=== PATIENT | female | born 1945 | race Caucasian/White ===

== ENCOUNTER → 2017-09-20 | Outpatient (CLI) | payer MEDICARE, OTHER ==
[~2017-09-20] MED LIST: AMBIEN 10MG10 MG PO; CALCIUM 500500 M2 PO; CELEXA 20MG20 MG/TAB PO; HYZAAR 12.5 MG-1 TAB PO; MULTIPLE VITAMI1 CAP PO; PROTONIX 40MG T40 MG PO; SYNTHROID 0.0.025 MG PO; VITAMIN D1000 IU PO; ZOCOR 40MG40 MG PO
[2017-09-20 16:44] LABS: HIV 1/2 Antibodies Non-Reactive; HIV-1p24 Antigen Non-Reactive
== END ==
LOC: COL.LAB 15:34
PROVIDERS: Orthopaedic Surgery
DX: Z01.812 Encounter for preprocedural laboratory examination (principal); M17.12 Unilateral primary osteoarthritis, left knee